=== PATIENT | female | born 1975 | race Caucasian/White ===

== ENCOUNTER 2017-05-30 22:41 | Emergency (ER) | payer BC ==
[~2017-05-30] VITALS: Ht 160 cm; Wt 52.2 kg
[2017-05-30 22:41] VITALS: BP 100/49
[~2017-05-30 22:41] MED LIST: GABA600T PO
== END 2017-05-30 23:39 | disposition home or self-care (01) ==
LOC: ER 22:41
DX: R33.9 Retention of urine, unspecified (principal)
CPT/HCPCS: 51702; 99284; A4606; Z7610